=== PATIENT | male | born 1975 | race Caucasian/White ===

== ENCOUNTER 2021-06-03 11:27 | Emergency (ER) | payer MEDICARE, OTHER, MEDICAID, SELFPAY ==
--- NOTE | ~2021-06-03 | XR_ITS ---
EXAMINATION: XR elbow RT min 3V DATE: 06/03/2021 12:17 INDICATION: Right elbow injury and pain. TECHNIQUE: 4 views of right elbow were obtained. COMPARISON: None. FINDINGS: Bone alignment is normal. No fracture. Joint spaces are well maintained. There is an enthes ophyte at olecranon. There is no elbow joint effusion. IMPRESSION: 1. No fracture. Reviewed, dictated and finalized at location A. IMPRESSION: 1. No fracture.
[2021-06-03 12:00] VITALS: BP 132/85; PULSE 65; RESP 18; TEMP 36.2; O2SAT 100
--- NOTE | 2021-06-03 12:42 | ED.UPPEXIN ---
HPI - Extremity Injury (Upper) General Chief Complaint: Fall Stated Complaint: RIGHT ARM INJURY Time Seen by Provider: 06/03/21 12:42 Source: patient and RN notes reviewed Mode of arrival: ambulatory Limitations: no limitations History of Present Illness HPI narrative: 45-year-old male presents to the [facility] with complaints of right arm pain after falling. Patient states that he tripped and fell landing on his right elbow 3 days ago. Has full range of motion of the shoulder, elbow and wrist. Strong earth moving technician. Positive radial pulse Related Data Home Medications Medication Instructions Recorded Confirmed Multivites 1 cap PO DAILY 06/03/21 06/03/21 aspirin [Aspirin Child] See Rx Instructions .ROUTE .COMPLEX 06/03/21 06/03/21 divalproex [Depakote ER] 500 mg PO DAILY 06/03/21 06/03/21 ergocalciferol (vitamin D2) 50,000 unit PO DAILY 06/03/21 06/03/21 [Vitamin D2] fenofibrate 145 mg PO DAILY 06/03/21 06/03/21 omega-3 fatty acids-vitamin E 1 cap PO DAILY 06/03/21 06/03/21 [Fish Oil] risperidone 0.5 mg PO DAILY 06/03/21 06/03/21 Allergies Allergy/AdvReac Type Severity Reaction Status Date / Time clindamycin Allergy Other Verified 06/03/21 12:14 erythromycin base Allergy Other Verified 06/03/21 12:14 Penicillins Allergy Rash Verified 06/03/21 12:11 scopolamine Allergy Other Verified 06/03/21 12:14 [From Transderm-Scop] thioproperazine Allergy Other Verified 06/03/21 12:14 lorazepam [From Ativan] AdvReac Other Verified 06/03/21 12:14 Review of Systems Review of Systems: All systems reviewed & are unremarkable except as noted in HPI and below Constitutional: Constitutional: Reports no additional constitutional complaints and Denies chills Eyes: Eyes: Reports no additional eye complaints ENT: Reports system reviewed and no additional complaints, except as documented Cardiovascular: Cardiovascular: Reports no additional cardiovascular complaints Respiratory: Respiratory: Reports no additional respiratory complaints, Denies cough and Denies dyspnea Musculoskeletal: Musculoskeletal: Reports as per HPI, Reports arthralgias (Right elbow) and Denies joint swelling Integumentary/Breasts: Skin/Breast: Reports as per HPI Comments: Bruising right posterior elbow Neurologic: Reports system reviewed and no additional complaints, except as documented Psychiatric: Psychiatric: Reports no additional psychiatric complaints Allergic/Immunologic: Allergic/Immunologic: Reports no additional allergic/immunologic complaints [facility] Past Medical History Medical History (Updated 06/06/21 @ 10:15 by Arabella Rodrigues) Mental disability Surgical History Surgical History (Updated 06/06/21 @ 10:12 by Arabella Rodrigues) No significant past surgical history Comments At the time of my signature, I reviewed and agree with the nursing past medical, surgical, social, and family history. There is no relevant family history pertinent to the patient complaint. Exam Const: General: no acute distress and alert Nutritional Appearance: well nourished Orientation/consciousness: patient oriented x3 Limitations: altered mental status HENMT: Head: normal to inspection Eyes: Pupils: Equal, round and reactive pupils present Neck: Neck: normal visual inspection, no lymphadenopathy and no meningeal signs Chest: Chest palpation & inspection: normal inspection of the chest Resp: Effort & Inspection: normal respiratory effort and no use of accessory muscles Auscultation: clear to auscultation bilaterally Cardio: Rate: regular rate Rhythm: regular rhythm Back/Spine/Pelvis: Back: no CVA tenderness Skin: Wounds: no wounds Other: Bruising noted to the right posterior and medial elbow Neuro: General: moves all extremities, no meningeal signs and no focal motor deficits Speech: normal speech Gait exam (Neuro): Normal gait present Other: History of MR Extrem: Right upper extremity: full ROM, normal capillary refill and elbow/forearm
== END 2021-06-03 12:57 | disposition home or self-care (01) ==
PROVIDERS: Emergency Provider Nurse Practitioner; PCP Family Medicine
DX: S50.01XA Contusion of right elbow, initial encounter (principal); W01.0XXA Fall on same level from slipping, tripping and stumbling without subsequent striking against object, initial encounter; F79 Unspecified intellectual disabilities
CPT/HCPCS: 73080; 99213; G0463

== ENCOUNTER 2023-05-07 14:51 | Outpatient (CLI) | payer MEDICARE, OTHER, MEDICAID, SELFPAY ==
--- NOTE | ~2023-05-07 | XR_ITS ---
XR knee LT 3V DATE: 05/07/2023 15:23 INDICATION: Fall 4 days ago. Pain. TECHNIQUE: 3 views COMPARISON: None FINDINGS: No fracture or dislocation or joint effusion. No periosteal reaction or bone destruction, r adiopaque intra-articular loose body or chondrocalcinosis is evident. IMPRESSION: No significant abnormality Reviewed, dictated and finalized at location A. IMPRESSION: No significant abnormality
== END 2023-05-07 14:52 | disposition home or self-care (01) ==
PROVIDERS: PCP Nurse Practitioner Family; Visit Provider Nurse Practitioner Family
DX: M79.605 Pain in left leg (principal)
CPT/HCPCS: 73562